=== PATIENT | male | born 1950 | race Caucasian/White ===

== ENCOUNTER → 2019-08-08 | Outpatient (CLI) | payer OTHER ==
[~2019-08-08] MED LIST: ALBU6.7H9 IH; ASPI-1005 PO; ATOR40TA69 PO; CARV6.25 PO; CLOP75TA32 PO; FURO40TA5 PO; GLIP5TAB11 PO; INSU100V12 SQ; LEVO25TA54 PO; LISI-617 PO; RANO500T2 PO; SPIR25TA PO; TIOT18CA3 IH
== END | disposition home or self-care (01) ==
LOC: SHCH 09:56
PROVIDERS: ATTEND Internal Medicine Cardiovascular Disease
DX: I82.812 Embolism and thrombosis of superficial veins of left lower extremity (principal); Z09 Encounter for follow-up examination after completed treatment for conditions other than malignant neoplasm
CPT/HCPCS: 93971